=== PATIENT | male | born 1995 | race African-American/Black ===

== ENCOUNTER → 2022-06-22 12:51 | Outpatient (CLI) | payer OTHER, SELFPAY ==
--- NOTE | ~2022-06-22 | XR_ITS ---
EXAM: XR hand RT min 3V DATE: 06/22/2022 13:08 HISTORY: Pain and swelling to rt hand since Jun 11, 2022 . COMPARISON: None available. FINDINGS: Normal mineralization. Transverse mid shaft fracture of the right fourth metacarpal with o ne half shaft width medial displacement, significant anterior angulation, and mild lateral angulation . No lytic or blastic lesion. Joint spaces are maintained. No erosion or periosteal change. Soft tiss ues within normal limits. IMPRESSION: Displaced and angulated transverse midshaft fracture of the right fourth metacarpal (boxe r's type fracture). Reviewed, dictated and finalized at location [facility] [employer] IMPRESSION: Displaced and angulated transverse midshaft fracture of the right f ourth metacarpal (boxer's type fracture).
== END ==
PROVIDERS: PCP Plastic Surgery; Visit Provider Plastic Surgery
DX: S62.324A Displaced fracture of shaft of fourth metacarpal bone, right hand, initial encounter for closed fracture (principal); X58.XXXA Exposure to other specified factors, initial encounter
CPT/HCPCS: 73130